=== PATIENT | female | born 1985 | race African-American/Black ===

== ENCOUNTER 2016-07-10 11:49 | Inpatient (IN) | payer MEDICAID, OTHER ==
[~2016-07-10] VITALS: Ht 170.2 cm; Wt 77.8 kg
[2016-07-10] VITALS (8 sets, daily range): BP systolic 121–159; BP diastolic 60–122; PULSE 108–128; RESP 18–32; TEMP 97.8–102; O2SAT 97–100
[~2016-07-10 11:49] MED LIST: HYDR50TA94 PO; MEDR4PAK3 PO
--- NOTE | 2016-07-10 11:53 | PD ---
Physical Exam Time Seen by Provider: 11:52 Narrative 31 y/o femaile presents with shortness of breath, n/v, neck pain, symptoms becagn last night. Vital signs ntoed. Seen at triage desk, awaiting bed placement. Data Data Last Documented VS Vital Signs Date Time Temp Pulse Resp B/P Pulse Ox O2 Delivery O2 Flow Rate FiO2 07/10/16 11:52 102.0 128 24 159/122 100 Room Air [facility] Medical Record Reviewed: Yes Supervised Visit with DOMINGO: Yes Brandon Mast Jul 10, 2016 11:53
--- NOTE | 2016-07-10 12:07 | PD ---
HPI Chief Complaint: Respiratory Distress Time Seen by Provider: 12:06 Travel History International Travel<30 days: No Contact w/Intl Traveler<30days: No Traveled to known affect area: No History of Present Illness HPI 31-year-old female presents to the emergency department for evaluation of fever , shortness of breath, right-sided throat pain that started last night. She also states she has been vomiting and vomited approximately 4 times today. No diarrhea. Patient states she has a mild cough. She has not taken anything at home for her fever. She reports abdominal pain only with coughing and vomiting. She reports no chronic medical problems and taking no prescribed medications. She does report a history of strep throat, but states this is worse. Patient denies . PFSH Past Medical History Diminished Hearing: No : 2 Para: 2 Past Surgical History Section: Yes (X2) Social History Alcohol Use: No Tobacco Use: No Substance Use: No Allergies-Medications (Allergen,Severity, Reaction): Coded Allergies: *MDRO Multi-Drug Resistant Organism (Verified Allergy, Unknown, 07/10/16) MRSA Reported Meds & Prescriptions Reported Meds & Active Scripts Active No Active Prescriptions or Reported Medications Review of Systems Except as stated in HPI: all other systems reviewed are Neg Physical Exam Narrative GENERAL: Well-nourished, well-developed female patient, ambulatory. Fever of 102.0. SKIN: Focused skin assessment warm/dry. HEAD: Normocephalic. Atraumatic. ENT: Mucosa pink and moist. Bilateral tonsils are erythematous, 2+. There is exudates to the right tonsil. No peritonsillar abscess. No uvular edema. No uvular, palatal, or tonsillar deviation. Airway patent. Nasal turbinates appear normal without nasal blood, purulent drainage or septal hematoma. Bilateral tympanic membranes are clear without erythema or perforation. EYES: No scleral icterus. No injection or drainage. NECK: Supple, trachea midline. No JVD or lymphadenopathy. CARDIOVASCULAR: Regular rate and rhythm without murmurs, gallops, or rubs. RESPIRATORY: Breath sounds equal bilaterally. No accessory muscle use. Lungs sounds are clear to auscultation. GASTROINTESTINAL: Abdomen soft, non-tender, nondistended. MUSCULOSKELETAL: No cyanosis, or edema. BACK: Nontender without obvious deformity. No CVA tenderness. Data Data Last Documented VS Vital Signs Date Time Temp Pulse Resp B/P Pulse Ox O2 Delivery O2 Flow Rate FiO2 07/10/16 12:10 100 Room Air 07/10/16 11:52 102.0 128 24 159/122 Orders Complete Blood Count With Diff (07/10/16 12:03) Comprehensive Metabolic Panel (07/10/16 12:03) Group A Rapid Strep Screen (07/10/16 12:03) Influenzae A/B Antigen (07/10/16 12:03) Chest, Single Ap (07/10/16 12:03) Iv Access Insert/Monitor (07/10/16 12:03) Oximetry (07/10/16 12:03) Acetaminophen (Tylenol) (07/10/16 12:15) Sodium Chloride 0.9% Flush (Ns Flush) (07/10/16 12:15) Sodium Chlor 0.9% 1000 Ml Inj (Ns 1000 M (07/10/16 12:15) Ondansetron Inj (Zofran Inj) (07/10/16 12:15) Strep Culture (Group A) (07/10/16 12:20) Blood Culture (07/10/16 12:50) Lactic Acid Sepsis Protocol (07/10/16 12:50) Ct Thorax/ Chest W Iv Contrast (07/10/16 ) Ceftriaxone Inj (Rocephin Inj) (07/10/16 13:00) Azithromycin Inj (Zithromax Inj) (07/10/16 13:00) Sodium Chlor 0.9% 1000 Ml Inj (Ns 1000 M (07/10/16 13:00) Admit Order (Ed Use Only) (07/10/16 13:36) Labs Laboratory Tests Test 07/10/16 07/10/16 12:20 13:10 White Blood Count 17.4 TH/MM3 Red Blood Count 4.55 MIL/MM3 Hemoglobin 9.1 GM/DL Hematocrit 28.8 % Mean Corpuscular Volume 63.3 FL Mean Corpuscular Hemoglobin 20.1 PG Mean Corpuscular Hemoglobin 31.7 % Concent Red Cell Distribution Width 18.3 % Platelet Count 196 TH/MM3 Mean Platelet Volume 9.0 FL Neutrophils (%) (Auto) 86.0 % Lymphocytes (%) (Auto) 5.8 % Monocytes (%) (Auto) 8.0 % Eosinophils (%) (Auto) 0.0 % Basophils (%) (Auto) 0.2 % Neutrophils # (Auto) 14.9 TH/MM3 Lymphocytes # (Auto) 1.0 TH/MM3 Monocytes # (Auto) 1.4 TH/MM3 Eosinophils # (Auto) 0.0 TH/MM3 Basophils # (Auto) 0.0 TH/MM3 CBC Comment AUTO DIFF Differential Total Cells 100 Counted Neutrophils % (Manual) 78 % Band Neutrophils % 5 % Lymphocytes % 9 % Monocytes % 6 % Neutrophils # (Manual) 14.8 TH/MM3 Metamyelocytes 2 % Differential Comment FINAL DIFF MANUAL Platelet Estimate NORMAL Platelet Morphology Comment NORMAL Ovalocytes 1+ Sodium Level 138 MEQ/L Potassium Level 3.6 MEQ/L Chloride Level 106 MEQ/L Carbon Dioxide Level 21.1 MEQ/L Anion Gap 11 MEQ/L Blood Urea Nitrogen 8 MG/DL Creatinine 0.49 MG/DL Estimat Glomerular Filtration 176 ML/MIN Rate Random Glucose 90 MG/DL Calcium Level 8.8 MG/DL Total Bilirubin 2.3 MG/DL Aspartate Amino Transf 19 U/L (AST/SGOT) Alanine Aminotransferase 42 U/L (ALT/SGPT) Alkaline Phosphatase 165 U/L Total Protein 6.7 GM/DL Albumin 3.1 GM/DL Lactic Acid Level 1.1 mmol/L MDM Medical Decision Making Medical Screen Exam Complete: Yes Emergency Medical Condition: Yes Medical Record Reviewed: Yes Interpretation(s) Last Impressions Chest X-Ray 07/10/16 1203 Signed Impressions: Service Date/Time: Sunday, July 10, 2016 12:06 - CONCLUSION: Left basilar airspace disease and abnormal mediastinal contour as above. CT chest with contrast recommended. Chris Covington MD Differential Diagnosis Strep pharyngitis versus influenza versus pneumonia versus viral syndrome Narrative Course 31-year-old female with no past medical history presents to the emergency department for evaluation of right-sided sore throat, fever, shortness of breath , cough that started last night. Patient appears anxious on exam. IV access established. CBC, CMP, strep swab, and influenza swab are ordered and pending. Chest x-ray is ordered and pending. Patient is given Tylenol 650 mg by mouth , normal saline 1 L IV bolus, Zofran 4 mg IV. CBC shows WBC of 17.4, hemoglobin 9.1 hematocrit 28.8, neutrophilia 86.0. CMP shows elevated bilirubin at 2.3, alkaline phosphatase 165. Strep is negative. Influenza is negative. Chest x-ray shows Left basilar airspace disease and abnormal mediastinal contour as above. CT chest with contrast recommended. CT of the chest with IV contrast is ordered and pending. Blood cultures 2, lactic acid are ordered and pending. Patient is given another 1 L normal saline IV bolus. Patient is given azithromycin 500 mg IV and Rocephin 1 g IV. [facility] is paged for admission. Dr. Fernandez accepted admission. Sepsis Criteria SIRS Criteria (2 or more): Temp > 100.9 or < 96.8, Heart rate over 90, WBC > 74791, < 4000 or > 10% bands Sepsis Criteria (SIRS+source): Infect source susp/known Diagnosis Primary Impression: Pneumonia Qualified Code: J18.1 - Pneumonia of left lower lobe due to infectious organism Additional Impression: Sepsis Qualified Code: A41.9 - Sepsis, due to unspecified organism Admitting Information Admitting Physician Requests: Admit Scripts No Active Prescriptions or Reported Meds Renate Jacinto Jul 10, 2016 12:07
[2016-07-10] MEDS ORDERED: ACETAMINOPHEN 325 MG TAB PO ONE (12:15)
[2016-07-10] MEDS ORDERED: ONDANSETRON HCL 4 MG/2 ML VIAL IV PUSH ONE (12:15)
[2016-07-10] MEDS ORDERED: SODIUM CHLORIDE 0.9% FLUSH 10 ML FLUSH IVF PRN (12:15)
[2016-07-10] MEDS ORDERED: SODIUM CHLOR 0.9% 1000 ML INJ 1,000 ML IV ONE ×2 (12:15→13:00)
[2016-07-10 12:37] LABS: AUTOMATED NEUTROPHIL # 14.9 TH/MM3 (1.8-7.7); BASOPHIL % 0.2 % (0.0-2.0); HEMATOCRIT 28.8 % (35.0-46.0); LYMPH % 5.8 % (9.0-44.0); MEAN CELL VOLUME 63.3 FL (80.0-100.0); MEAN CORPUSCULAR HEMOGLOBIN 20.1 PG (27.0-34.0); MEAN CORPUSCULAR HGB CONC 31.7 % (32.0-36.0); PLATELET COUNT 196 TH/MM3 (150-450); RED BLOOD COUNT 4.55 MIL/MM3 (4.00-5.30); RED CELL DISTRIBUTION WIDTH 18.3 % (11.6-17.2); WHITE BLOOD COUNT 17.4 TH/MM3 (4.0-11.0)
[2016-07-10 12:41] LABS: HEMO FLAGS AUTO DIFF
--- NOTE | 2016-07-10 12:44 | RADRPT ---
EXAM DATE/TIME: 07/10/2016 12:06 [facility] COMPARISON: CHEST ONE VIEW EMPLOYMED ONLY, September 26, 2012, 14:10. INDICATIONS : Shortness of breath. MEDICAL HISTORY : None. SURGICAL HISTORY : None. ENCOUNTER: Initial ACUITY: 1 day PAIN SCORE: 0/10 LOCATION: Bilateral chest FINDINGS: The right lung is clear. There is left lower lobe air bronchogram formation and abnormal prominence o f the diastinal shadow at the expected location of the AP window. Mass or pulmonary artery enlargemen t can have this appearance. CONCLUSION: Left basilar airspace disease and abnormal mediastinal contour as above. CT chest with contrast recom mended. Chris Covington MD on July 10, 2016 at 12:41 Board Certified Radiologist. This report was verified electronically.
[2016-07-10 12:57] LABS: ANION GAP 11 MEQ/L (5-15); AST (GOT) 19 U/L (15-37); BICARBONATE 21.1 MEQ/L (21.0-32.0); BLOOD UREA NITROGEN 8 MG/DL (7-18); CHLORIDE 106 MEQ/L (98-107); GLOMERULAR FILTRATION RATE 176 ML/MIN (>89); POTASSIUM 3.6 MEQ/L (3.5-5.1); SODIUM (NA) 138 MEQ/L (136-145)
[2016-07-10 13:00] LABS: ALKALINE PHOSPHATASE 165 U/L (45-117); ALT (GPT) 42 U/L (10-53); TOTAL BILIRUBIN ADULT 2.3 MG/DL (0.2-1.0)
[2016-07-10] MEDS ORDERED: cefTRIAXone INJ 1,000 MG in SODIUM CHLORIDE 0.9% INJ 100 ML IV ONE (13:00)
[2016-07-10] MEDS ORDERED: AZITHROMYCIN INJ 500 MG in SODIUM CHLOR 0.9% 250 ML INJ 250 ML IV ONE (13:00)
[2016-07-10 13:23] LABS: BANDS 5 % (0-6); METAMYELOCYTES 2 % (0-1); NEUTROPHIL # MANUAL DIFF 14.8 TH/MM3 (1.8-7.7); POLYS (SEG NEUTROPHILS) 78 % (16-70); WBC DIFF SAMPLE 100
[2016-07-10 13:24] LABS: OVALOCYTES 1+ (NORMAL)
[2016-07-10 13:25] LABS: PLATELET ESTIMATE SMEAR NORMAL (NORMAL); PLATELET MORPHOLOGY NORMAL (NORMAL); SCAN/DIFF FINAL DIFF MANUAL
[2016-07-10] MEDS ORDERED: IOHEXOL 350 MG/ML 10 ML VIAL (for RAD DIAG) IV ONE (13:47)
[2016-07-10] MEDS ORDERED: ONDANSETRON HCL 4 MG/2 ML VIAL IV PRN (14:00)
[2016-07-10] MEDS ORDERED: RESP: ALBUTEROL 2.5 MG/IPRATROPIUM 0.5 MG NEB (PRN) INH (14:00)
[2016-07-10] MEDS ORDERED: 1/2 NS + KCL 20 MEQ INJ 1,000 ML IV SCH (14:00)
[2016-07-10] MEDS ORDERED: guaiFENesin/DEXTROMETHORPHAN 200 MG/20 MG/10 ML CUP PO PRN (14:00)
[2016-07-10] MEDS ORDERED: SODIUM CHLORIDE 0.9% FLUSH 10 ML FLUSH IV FLUSH PRN (14:00)
--- NOTE | 2016-07-10 14:02 | RADRPT ---
EXAM DATE/TIME: 07/10/2016 13:41 [facility] COMPARISON: No previous studies available for comparison. INDICATIONS : Dyspnea since last night. Right neck pain IV CONTRAST: 93 cc Omnipaque 350 (iohexol) IV RADIATION DOSE: 5.72 CTDIvol (mGy) MEDICAL HISTORY : None SURGICAL HISTORY : None. ENCOUNTER: Initial ACUITY: 1 day PAIN SCALE: 0/10 LOCATION: chest TECHNIQUE: Volumetric scanning of the chest was performed. Using automated exposure control and adjustment of t he mA and/or kV according to patient size, radiation dose was kept as low as reasonably achievable to obtain optimal diagnostic quality images. FINDINGS: There is thyromegaly identified. No pleural or pericardial effusions are seen. There is no consolidat ion identified. The main pulmonary artery is prominent in caliber measuring 4.2 cm in transverse dime nsion on axial image 21, accounting for the density on the recent x-ray. There is soft tissue in the anterior mediastinum possibly representing thymic tissue. A discrete mass is not seen. The lungs are clear. The osseous structures are intact. CONCLUSION: 1. Mild prominent caliber of the main pulmonary artery which accounts for the density on the x-ray. 2. No evidence for pneumonia. 3. Thyroid enlargement. Chris Covington MD on July 10, 2016 at 13:58 Board Certified Radiologist. This report was verified electronically.
--- NOTE | 2016-07-10 14:36 | HHI.HP ---
[facility] Diana Gardner M.D. Admission Diagnosis pneumonia, sepsis Diagnoses: Chief Complaint: Shortness of breath Travel History International Travel<30 Days: No Contact w/Intl Traveler <30 Da: No Traveled to Known Affected Are: No Sepsis Criteria SIRS Criteria (2 or more): Temp > 100.9 or < 96.8, Heart rate over 90, WBC > 09036, < 4000 or > 10% bands Sepsis Criteria (SIRS+source): Infect source susp/known History of Present Illness 31-year-old female with no significant medical history presented to the emergency room with complaint of shortness of breath, sore throat that started yesterday. The patient also had about 4 episodes of vomiting since her symptoms started. She reports an associated cough with yellowish sputum. She denies chest pain. She has been having fevers and chills at home. Workup in the emergency room revealed a fever of 102. She is tachycardic and tachypneic. She has a leukocytosis and her chest x-ray is concerning for pneumonia. Hospitalist contacted for admission. Review of Systems Constitutional: COMPLAINS OF: Fever, Chills Endocrine: DENIES: Polydipsia, Polyuria Ears, nose, mouth, throat: COMPLAINS OF: Throat pain Respiratory: COMPLAINS OF: Cough, Sputum production, Shortness of breath Cardiovascular: DENIES: Chest pain Gastrointestinal: COMPLAINS OF: Nausea, Vomiting Except as stated in HPI: all other systems reviewed are Neg Past Family Social History Past Medical History None Past Surgical History C-sections 3 Reported Medications Reported Meds & Active Scripts Active No Active Prescriptions or Reported Medications Allergies: Coded Allergies: *MDRO Multi-Drug Resistant Organism (Verified Allergy, Unknown, 07/10/16) MRSA Family History Patient does not know Social History She denies tobacco, alcohol, or illicit drug use Physical Exam Vital Signs Vital Signs Date Time Temp Pulse Resp B/P Pulse Ox O2 Delivery O2 Flow Rate FiO2 07/10/16 12:10 100 Room Air 07/10/16 12:10 100 Room Air 07/10/16 11:52 102.0 128 24 159/122 100 Room Air Physical Exam GENERAL: Obese female in mild respiratory distress. She is tachypneic SKIN: No rashes, ecchymoses or lesions. Cool and dry. HEAD: Atraumatic. Normocephalic. No temporal or scalp tenderness. EYES: Pupils equal round and reactive. Extraocular motions intact. No scleral icterus. No injection or drainage. ENT: Nose without drainage. Marked tonsillar hypertrophy but no exudates NECK: Trachea midline. No JVD or lymphadenopathy. Supple, nontender, no meningeal signs. CARDIOVASCULAR: Regular rate and rhythm without murmurs, gallops, or rubs. RESPIRATORY: There are some faint diffuse rhonchi. No wheezing GASTROINTESTINAL: Abdomen soft, non-tender, nondistended. No hepato-splenomegaly , or palpable masses. No guarding. MUSCULOSKELETAL: Extremities without clubbing, cyanosis, or edema. No joint tenderness, effusion, or edema noted. No calf tenderness. Negative Homans sign bilaterally. NEUROLOGICAL: Awake and alert. Cranial nerves II through XII intact. Motor and sensory grossly within normal limits. Five out of 5 muscle strength in all muscle groups. Normal speech. Laboratory Laboratory Tests Test 07/10/16 07/10/16 12:20 13:10 White Blood Count 17.4 Red Blood Count 4.55 Hemoglobin 9.1 Hematocrit 28.8 Mean Corpuscular Volume 63.3 Mean Corpuscular Hemoglobin 20.1 Mean Corpuscular Hemoglobin 31.7 Concent Red Cell Distribution Width 18.3 Platelet Count 196 Mean Platelet Volume 9.0 Neutrophils (%) (Auto) 86.0 Lymphocytes (%) (Auto) 5.8 Monocytes (%) (Auto) 8.0 Eosinophils (%) (Auto) 0.0 Basophils (%) (Auto) 0.2 Neutrophils # (Auto) 14.9 Lymphocytes # (Auto) 1.0 Monocytes # (Auto) 1.4 Eosinophils # (Auto) 0.0 Basophils # (Auto) 0.0 CBC Comment AUTO DIFF Differential Total Cells 100 Counted Neutrophils % (Manual) 78 Band Neutrophils % 5 Lymphocytes % 9 Monocytes % 6 Neutrophils # (Manual) 14.8 Metamyelocytes 2 Differential Comment FINAL DIFF MANUAL Platelet Estimate NORMAL Platelet Morphology Comment NORMAL Ovalocytes 1+ Sodium Level 138 Potassium Level 3.6 Chloride Level 106 Carbon Dioxide Level 21.1 Anion Gap 11 Blood Urea Nitrogen 8 Creatinine 0.49 Estimat Glomerular Filtration 176 Rate Random Glucose 90 Calcium Level 8.8 Total Bilirubin 2.3 Aspartate Amino Transf 19 (AST/SGOT) Alanine Aminotransferase 42 (ALT/SGPT) Alkaline Phosphatase 165 Total Protein 6.7 Albumin 3.1 Lactic Acid Level 1.1 Date/Time Procedure Status Source Growth 07/10/16 13:10 Aerobic Blood Culture Received Blood Peripheral Pending 07/10/16 13:10 Anaerobic Blood Culture Received Blood Peripheral Pending 07/10/16 12:20 Influenza Types A,B Antigen (SCOTTY) - Final Complete Nasal Aspirate NEGATIVE FOR FLU A AND B ANTIGEN.... 07/10/16 12:20 Group A Streptococcus Screen (SCOTTY) - Final Complete Throat 07/10/16 12:20 Group A Streptococcus Screen Received Throat Pending Result Diagram: 07/10/16 1220 07/10/16 1220 Imaging Last Impressions Chest X-Ray 07/10/16 1203 Signed Impressions: Service Date/Time: Sunday, July 10, 2016 12:06 - CONCLUSION: Left basilar airspace disease and abnormal mediastinal contour as above. CT chest with contrast recommended. Chris Covington MD Chest CT 07/10/16 0000 Signed Impressions: Service Date/Time: Sunday, July 10, 2016 13:41 - CONCLUSION: 1. Mild prominent caliber of the main pulmonary artery which accounts for the density on the x-ray. 2. No evidence for pneumonia. 3. Thyroid enlargement. Chris Covington MD Assessment and Plan Problem List: (1) Sepsis ICD Code: A41.9 Status: Acute (2) Pneumonia ICD Code: J18.9 Status: Acute Assessment and Plan 31-year-old female who presented with sepsis. Initial concern for pneumonia. CT scan does not reveal pneumonia. However clinically the patient is having difficulty with breathing, coughing, with fever and leukocytosis. It is possible that pneumonia is early. A viral syndrome may be causing her sepsis as well. Sepsis/pneumonia: - Treat empirically with Rocephin and azithromycin. - Follow blood cultures - Breathing treatments as needed - She does have tonsillar hypertrophy. Will give a dose of Solu-Medrol to help with inflammation. - Ibuprofen as needed for throat pain Chronic anemia: Based on review of records. She is always had some level of anemia. Unclear what type. - Will obtain iron studies GI prophylaxis: Stool softener PRN constipation. DVT PPx: SCDs Discussed Condition With ER PA Physician Certification 2 Midnight Certification Type: Admission for Inpatient Services Order for Inpatient Services The services are ordered in accordance with Medicare regulations or non- Medicare payer requirements, as applicable. In the case of services not specified as inpatient-only, they are appropriately provided as inpatient services in accordance with the 2-midnight benchmark. Estimated LOS (days): 3 days is the estimated time the patient will need to remain in the hospital, assuming treatment plan goals are met and no additional complications. Post-Hospital Plan: Home Problem Qualifiers (1) Sepsis: Qualified Code: A41.9 - Sepsis, due to unspecified organism (2) Pneumonia: Qualified Code: J18.1 - Pneumonia of left lower lobe due to infectious organism Abelardo Fernandez MD Jul 10, 2016 14:35
[2016-07-10] MEDS ORDERED: methylPREDNISolone SOD SUCC 40 MG/1 ML VIAL IV PUSH ONE (16:45)
[2016-07-10] MEDS: IBUPROFEN 800 MG TAB PO PRN ×2 (16:52→23:46)
[2016-07-10] MEDS: RESP: ALBUTEROL 2.5 MG/IPRATROPIUM 0.5 MG NEB (SCH) INH ×2 (16:58→21:51)
[2016-07-10] MEDS ORDERED: METOPROLOL TARTRATE 5 MG/5 ML VIAL IV PUSH PRN (17:45)
[2016-07-10] MEDS ORDERED: ACETAMINOPHEN 325 MG TAB PO PRN (19:30)
[2016-07-10 20:11] LABS: FERRITIN 54 NG/ML (8-252)
[2016-07-10] MEDS: SODIUM CHLORIDE 0.9% FLUSH 10 ML FLUSH IV FLUSH SCH (20:43)
[2016-07-10] MEDS ORDERED: SODIUM CHLORID 0.9% 500 ML INJ 500 ML IV ONE (22:15)
[2016-07-11] VITALS (11 sets, daily range): BP systolic 118–153; BP diastolic 55–72; PULSE 79–133; RESP 18–20; TEMP 97.1–99.3; O2SAT 97–100
[2016-07-11] MEDS: RESP: ALBUTEROL 2.5 MG/IPRATROPIUM 0.5 MG NEB (SCH) INH ×4 (03:28→21:21)
[2016-07-11] MEDS ORDERED: SODIUM CHLORID 0.9% 500 ML INJ 500 ML IV ONE (06:15)
[2016-07-11 08:26] LABS: AUTOMATED NEUTROPHIL # 11.8 TH/MM3 (1.8-7.7); BASOPHIL # 0.1 TH/MM3 (0-0.2); BASOPHIL % 0.6 % (0.0-2.0); HEMATOCRIT 27.4 % (35.0-46.0); LYMPH % 8.8 % (9.0-44.0); LYMPHOCYTE # 1.3 TH/MM3 (1.0-4.8); MEAN CELL VOLUME 63.6 FL (80.0-100.0); MEAN CORPUSCULAR HEMOGLOBIN 20.1 PG (27.0-34.0); MEAN CORPUSCULAR HGB CONC 31.6 % (32.0-36.0); MONO % 7.6 % (0.0-8.0); PLATELET COUNT 175 TH/MM3 (150-450); RED BLOOD COUNT 4.31 MIL/MM3 (4.00-5.30); RED CELL DISTRIBUTION WIDTH 18.4 % (11.6-17.2); WHITE BLOOD COUNT 14.2 TH/MM3 (4.0-11.0)
[2016-07-11 08:30] LABS: HEMO FLAGS AUTO DIFF
[2016-07-11] MEDS: SODIUM CHLORIDE 0.9% FLUSH 10 ML FLUSH IV FLUSH SCH ×2 (08:33→23:00)
[2016-07-11] MEDS: cefTRIAXone INJ 1,000 MG in SODIUM CHLORIDE 0.9% INJ 100 ML IV SCH (08:33)
[2016-07-11] MEDS: AZITHROMYCIN 250 MG TAB PO SCH (08:33)
[2016-07-11 08:41] LABS: ANION GAP 9 MEQ/L (5-15); BICARBONATE 21.2 MEQ/L (21.0-32.0); BLOOD UREA NITROGEN 7 MG/DL (7-18); CHLORIDE 113 MEQ/L (98-107); GLOMERULAR FILTRATION RATE 185 ML/MIN (>89); POTASSIUM 3.5 MEQ/L (3.5-5.1); SODIUM (NA) 143 MEQ/L (136-145); TRANSFERRIN IRON PROFILE 233 MG/DL (200-360)
[2016-07-11 09:25] LABS: BANDS 10 % (0-6); NEUTROPHIL # MANUAL DIFF 11.9 TH/MM3 (1.8-7.7); OVALOCYTES 1+ (NORMAL); PLATELET ESTIMATE SMEAR NORMAL (NORMAL); PLATELET MORPHOLOGY NORMAL (NORMAL); POLYS (SEG NEUTROPHILS) 74 % (16-70); SCAN/DIFF FINAL DIFF MANUAL; WBC DIFF SAMPLE 100
[2016-07-11] MEDS: IBUPROFEN 800 MG TAB PO PRN ×2 (11:21→19:04)
[2016-07-11] MEDS ORDERED: ATENOLOL 25 MG TAB PO SCH (12:18)
--- NOTE | 2016-07-11 14:13 | HHI.PR ---
Subjective Remarks Patient reports feeling better today. Breathing more comfortably. Throat pain significantly improved. Still tachycardic. We discussed her lab results that are consistent with Hyperthyroidism and most likely Graves disease. She denies visual difficulties. Objective Vitals Vital Signs Date Time Temp Pulse Resp B/P Pulse Ox O2 Delivery O2 Flow Rate FiO2 07/11/16 09:20 97 21 07/11/16 08:42 133 07/11/16 08:04 98.3 108 20 137/72 99 07/11/16 04:00 97.1 109 18 136/62 100 07/11/16 03:30 98 Nasal Cannula 21 07/11/16 00:00 98.0 110 18 153/72 97 07/10/16 21:53 98 21 07/10/16 20:00 110 07/10/16 20:00 97.8 108 18 129/75 98 07/10/16 18:20 101.0 114 152/64 97 07/10/16 18:15 99.8 125 135/60 97 07/10/16 17:02 98 21 07/10/16 16:00 99.5 121 32 121/78 98 I/O 07/10/16 07/10/16 07/10/16 07/11/16 07/11/16 07/11/16 07:00 15:00 23:00 07:00 15:00 23:00 Intake Total 985 ml 480 ml Balance 985 ml 480 ml Intake Oral 480 ml 480 ml IV Total 505 ml # Voids 1 1 # Bowel Movements 0 0 Result Diagram: 07/11/16 0811 07/11/16 0811 Imaging Last Impressions Thyroid Ultrasound 07/11/16 0000 Signed Impressions: Service Date/Time: Monday, July 11, 2016 15:10 - CONCLUSION: Enlarged thyroid gland is noted with marked increased vascularity. Chris Covington MD Chest X-Ray 07/10/16 1203 Signed Impressions: Service Date/Time: Sunday, July 10, 2016 12:06 - CONCLUSION: Left basilar airspace disease and abnormal mediastinal contour as above. CT chest with contrast recommended. Chris Covington MD Chest CT 07/10/16 0000 Signed Impressions: Service Date/Time: Sunday, July 10, 2016 13:41 - CONCLUSION: 1. Mild prominent caliber of the main pulmonary artery which accounts for the density on the x-ray. 2. No evidence for pneumonia. 3. Thyroid enlargement. Chris Covington MD Objective Remarks GENERAL: Obese female in no acute distress. EYES: Exophthalmos evident. Pupils equal round and reactive. Extraocular motions intact. ENT: Nose without drainage. Marked tonsillar hypertrophy but no exudates NECK: Trachea midline. Thyroid enlarged. CARDIOVASCULAR: Tachycardic. No murmurs. RESPIRATORY: Clear to auscultation bilaterally. GASTROINTESTINAL: Abdomen soft, non-tender, nondistended. MUSCULOSKELETAL: Extremities without clubbing, cyanosis, or edema. A/P Problem List: (1) Sepsis ICD Code: A41.9 Status: Acute (2) Pneumonia ICD Code: J18.9 Status: Acute (3) Hyperthyroidism ICD Code: E05.90 Status: Acute (4) Graves disease ICD Code: E05.00 Status: Acute Assessment and Plan 31-year-old female who presented with sepsis. Initial concern for pneumonia. CT scan does not reveal pneumonia. However clinically the patient is having difficulty with breathing, coughing, with fever and leukocytosis. It is possible that pneumonia is early. A viral syndrome may be causing her sepsis as well. Further workup consistent with Graves disease. Sepsis/pneumonia: - Treat empirically with Rocephin and azithromycin. - Follow blood cultures - Breathing treatments as needed - She does have tonsillar hypertrophy. - Ibuprofen as needed for throat pain Graves disease: New diagnosis for the patient. Tachycardic. Low TSH, High T3 and T4, High T3/T4 ratio. Non nodular, enlarged thyroid with marked vascularity. - Patient reports she recently saw her PCP who obtained initial thyroid blood work but have not followed up yet - Will start Atenolol 25 mg daily to control tachycardia - Will discuss Methimazole with the patient in AM vs defer to PCP for further treatment Microcytic anemia: Likely secondary to above - Advise outpatient follow up. GI prophylaxis: Stool softener PRN constipation. DVT PPx: SCDs Discharge Planning Probable discharge tomorrow. Problem Qualifiers (1) Sepsis: Qualified Code: A41.9 - Sepsis, due to unspecified organism (2) Pneumonia: Qualified Code: J18.1 - Pneumonia of left lower lobe due to infectious organism Abelardo Fernandez MD Jul 11, 2016 14:12
--- NOTE | 2016-07-11 16:16 | RADRPT ---
EXAM DATE/TIME: 07/11/2016 15:10 [facility] COMPARISON: CT THORAX W CONTRAST, July 10, 2016, 13:41. INDICATIONS : Thyroid nodule. MEDICAL HISTORY : Hypertension. Sputum production. Dyspnea. Nausea/vomiting. MRSA. SURGICAL HISTORY : section. ENCOUNTER: Initial ACUITY: 1 month PAIN SCORE: 0/10 LOCATION: Bilateral neck MEASUREMENTS: RIGHT LOBE: 6.7 x 3.3 x 2.3 cm LEFT LOBE: 7.4 x 3.3 x 3.0 cm FINDINGS: There is diffuse increased vascularity of the thyroid gland which is enlarged and mildly inhomogeneou s. There are no discrete nodules. CONCLUSION: Enlarged thyroid gland is noted with marked increased vascularity. Chris Covington MD on July 11, 2016 at 16:13 Board Certified Radiologist. This report was verified electronically.
[2016-07-12] VITALS: BP 157/72; PULSE 114; RESP 20; TEMP 99; O2SAT 100
[2016-07-12] MEDS: IBUPROFEN 800 MG TAB PO PRN ×2 (01:00→09:34)
[2016-07-12 04:00] VITALS: BP 152/79; PULSE 101; RESP 20; TEMP 98.4; O2SAT 99
[2016-07-12 04:37] VITALS: PULSE 100
[2016-07-12] MEDS ORDERED: RESP: IPRATROPIUM 0.5 MG/2.5 ML NEB NEB PRN (05:15)
[2016-07-12 06:32] LABS: BICARBONATE 20.1 MEQ/L (21.0-32.0); MAGNESIUM 1.7 MG/DL (1.5-2.5); POTASSIUM 3.4 MEQ/L (3.5-5.1)
[2016-07-12 08:00] VITALS: BP 141/69; PULSE 108; RESP 20; TEMP 98.4; O2SAT 98
[2016-07-12] MEDS ORDERED: ATENOLOL 25 MG TAB PO SCH (08:15)
[2016-07-12] MEDS ORDERED: ATENOLOL 50 MG TAB PO SCH (09:00)
[2016-07-12] MEDS: SODIUM CHLORIDE 0.9% FLUSH 10 ML FLUSH IV FLUSH SCH (09:00)
[2016-07-12] MEDS ORDERED: IBUP800T23 PO (09:09)
[2016-07-12] MEDS ORDERED: ATEN25TA PO (09:09)
[2016-07-12] MEDS ORDERED: AZIT250T3 PO (09:09)
--- NOTE | 2016-07-12 09:10 | HHI.DCPOC ---
Discharge Care Plan Diagnosis: (1) Hyperthyroidism (2) Graves disease (3) Sepsis Goals to Promote Your Health * To prevent worsening of your condition and complications * To maintain your health at the optimal level Directions to Meet Your Goals Take your medications as prescribed Follow your dietary instruction Follow activity as directed Keep your appointments as scheduled Take your immunizations and boosters as scheduled If your symptoms worsen call your PCP, if no PCP go to Urgent Care Center or Emergency Room Smoking is Dangerous to Your Health. Avoid second hand smoke Call the 24-hour hour crisis hotline for domestic abuse at Abelardo Fernandez MD Jul 12, 2016 09:10
--- NOTE | 2016-07-12 09:14 | HHI.DS ---
Discharge Summary Admission Date Jul 10, 2016 at 13:38 Discharge Date: Jul 12, 2016 Admitting Diagnosis pneumonia, sepsis (1) Sepsis ICD Code: A41.9 (2) Pneumonia ICD Code: J18.9 (3) Hyperthyroidism ICD Code: E05.90 (4) Graves disease ICD Code: E05.00 Procedures None Brief History - From Admission 31-year-old female with no significant medical history presented to the emergency room with complaint of shortness of breath, sore throat that started yesterday. The patient also had about 4 episodes of vomiting since her symptoms started. She reports an associated cough with yellowish sputum. She denies chest pain. She has been having fevers and chills at home. Workup in the emergency room revealed a fever of 102. She is tachycardic and tachypneic. She has a leukocytosis and her chest x-ray is concerning for pneumonia. Hospitalist contacted for admission. CBC/BMP: 07/11/16 0811 07/12/16 0538 Significant Findings Laboratory Tests Test 07/10/16 07/11/16 07/12/16 12:20 08:11 05:38 White Blood Count 17.4 TH/MM3 14.2 TH/MM3 (4.0-11.0) (4.0-11.0) Hemoglobin 9.1 GM/DL 8.7 GM/DL (11.6-15.3) (11.6-15.3) Hematocrit 28.8 % 27.4 % (35.0-46.0) (35.0-46.0) Mean Corpuscular Volume 63.3 FL 63.6 FL (80.0-100.0) (80.0-100.0) Mean Corpuscular Hemoglobin 20.1 PG 20.1 PG (27.0-34.0) (27.0-34.0) Mean Corpuscular Hemoglobin 31.7 % 31.6 % Concent (32.0-36.0) (32.0-36.0) Red Cell Distribution Width 18.3 % 18.4 % (11.6-17.2) (11.6-17.2) Neutrophils (%) (Auto) 86.0 % 83.0 % (16.0-70.0) (16.0-70.0) Lymphocytes (%) (Auto) 5.8 % 8.8 % (9.0-44.0) (9.0-44.0) Neutrophils # (Auto) 14.9 TH/MM3 11.8 TH/MM3 (1.8-7.7) (1.8-7.7) Monocytes # (Auto) 1.4 TH/MM3 1.1 TH/MM3 (0-0.9) (0-0.9) Neutrophils % (Manual) 78 % (16-70) 74 % (16-70) Neutrophils # (Manual) 14.8 TH/MM3 11.9 TH/MM3 (1.8-7.7) (1.8-7.7) Metamyelocytes 2 % (0-1) Ovalocytes 1+ (NORMAL) 1+ (NORMAL) Creatinine 0.49 MG/DL 0.47 MG/DL 0.37 MG/DL (0.50-1.00) (0.50-1.00) (0.50-1.00) Total Bilirubin 2.3 MG/DL (0.2-1.0) Alkaline Phosphatase 165 U/L (45-117) Albumin 3.1 GM/DL (3.4-5.0) Folate GREATER THAN 20.0 NG/ML (3.1-17.5) Thyroid Stimulating Hormone LESS THAN 3rd Gen 0.005 uIU/ML (0.358-3.740) Band Neutrophils % 10 % (0-6) Chloride Level 113 MEQ/L 110 MEQ/L (98-107) (98-107) Random Glucose 132 MG/DL 109 MG/DL (74-106) (74-106) Iron Level 13 MCG/DL (50-170) Percent Iron Saturation 4.0 % (20-50) Free Thyroxine 5.17 NG/DL (0.76-1.46) Total Triiodothyronine 291 NG/DL (60-181) Potassium Level 3.4 MEQ/L (3.5-5.1) Carbon Dioxide Level 20.1 MEQ/L (21.0-32.0) Imaging Last Impressions Thyroid Ultrasound 07/11/16 0000 Signed Impressions: Service Date/Time: Monday, July 11, 2016 15:10 - CONCLUSION: Enlarged thyroid gland is noted with marked increased vascularity. Chris Covington MD Chest X-Ray 07/10/16 1203 Signed Impressions: Service Date/Time: Sunday, July 10, 2016 12:06 - CONCLUSION: Left basilar airspace disease and abnormal mediastinal contour as above. CT chest with contrast recommended. Chris Covington MD Chest CT 07/10/16 0000 Signed Impressions: Service Date/Time: Sunday, July 10, 2016 13:41 - CONCLUSION: 1. Mild prominent caliber of the main pulmonary artery which accounts for the density on the x-ray. 2. No evidence for pneumonia. 3. Thyroid enlargement. Chris Covington MD PE at Discharge GENERAL: Obese female in no acute distress. EYES: Exophthalmos evident. Pupils equal round and reactive. Extraocular motions intact. ENT: Nose without drainage. Marked tonsillar hypertrophy but no exudates NECK: Trachea midline. Thyroid enlarged. CARDIOVASCULAR: Tachycardic. No murmurs. RESPIRATORY: Clear to auscultation bilaterally. GASTROINTESTINAL: Abdomen soft, non-tender, nondistended. MUSCULOSKELETAL: Extremities without clubbing, cyanosis, or edema. Pt update on day of discharge Patient reports she is feeling better. She is anxious to go home. She understand the need to follow up outpatient. She does have a PCP. We discussed her discharge planning at length and a new diagnosis of hyperthyroidism and Graves' disease. All of her questions were answered. She understands further workup and other medications may be added to her treatment plan outpatient. Hospital Course 31-year-old female who presented with sepsis. Initial concern for pneumonia. CT scan does not reveal pneumonia. However clinically the patient is having difficulty with breathing, coughing, with fever and leukocytosis. It is possible that pneumonia is early. A viral syndrome could have caused her sepsis as well. Further workup consistent with Graves disease. Evaluation and treatment course detailed below: Sepsis/pneumonia: -Patient treated empirically with Rocephin and azithromycin. Her respiratory symptoms markedly improved. She is discharged on azithromycin to complete the course. Blood cultures were negative at 48 hours. Graves disease: New diagnosis for the patient. Tachycardic. Low TSH, High T3 and T4, High T3/T4 ratio. Non nodular, enlarged thyroid with marked vascularity. - Patient reports she recently saw her PCP who obtained initial thyroid blood work but have not followed up yet -She was started on atenolol which helped tachycardia. She is advised to follow up outpatient with her primary care physician who may titrate up her atenolol and may probably start methimazole for treatment of her Graves' disease. Patient understand the need to follow-up for further treatment of this newly diagnosed condition. Microcytic anemia: Likely secondary to above - Advise outpatient follow up. Pt Condition on Discharge: Stable Discharge Disposition: Discharge Home Discharge Time: > 30 minutes Discharge Instructions DIET: Follow Instructions for: As Tolerated, No Restrictions Activities you can perform: Regular-No Restrictions Follow up Referrals: PCP Follow-up - 3-5 Days New Medications: Azithromycin (Azithromycin) 250 Mg Tab 250 MG PO DAILY Infection #4 Ref 0 TAB Atenolol (Atenolol) 25 Mg Tab 50 MG PO DAILY #30 TAB Ibuprofen (Ibuprofen) 800 Mg Tab 800 MG PO Q6HR PRN PAIN SCALE 1 TO 10 #15 TAB Abelardo Fernandez MD Jul 12, 2016 09:14
[2016-07-12] MEDS: AZITHROMYCIN 250 MG TAB PO SCH (09:34)
[2016-07-12] MEDS: cefTRIAXone INJ 1,000 MG in SODIUM CHLORIDE 0.9% INJ 100 ML IV SCH (09:35)
[2016-07-12] MEDS ORDERED: RESP: IPRATROPIUM 0.5 MG/2.5 ML NEB NEB SCH (10:00)
== END 2016-07-12 12:45 | disposition home or self-care (01) | DRG 871 ==
LOC: NEPD 11:49 → NEDA 13:38 → N04A 15:09
PROVIDERS: ADMIT Family Medicine; ATTEND Family Medicine
DX: A41.9 Sepsis, unspecified organism (principal); J18.9 Pneumonia, unspecified organism; D50.9 Iron deficiency anemia, unspecified; E05.00 Thyrotoxicosis with diffuse goiter without thyrotoxic crisis or storm; B34.9 Viral infection, unspecified; J35.1 Hypertrophy of tonsils
CPT/HCPCS: 71010; 71260; 76536; 80048; 80053; 82607; 82728; 82746; 83540; 83550; 83605; 83735; 84439; 84443; 84480; 85007; 85027; 87040; 87081; 87449; 87641; 87804; 87880; 94640; 94664; 96361; 96365; 96375; J0456; J0696; J2405; J2920; J7030; J7040; J7050; J7644; Q9967

== ENCOUNTER 2016-07-24 01:56 | Emergency (ER) | payer OTHER ==
[~2016-07-24] VITALS: Ht 170.2 cm; Wt 104.0 kg
[~2016-07-24 01:56] MED LIST changes: +ATEN25TA PO; +AZIT250T3 PO; -HYDR50TA94 PO; +IBUP800T23 PO; -MEDR4PAK3 PO
[2016-07-24 02:00] VITALS: BP 130/78; PULSE 104; RESP 16; TEMP 98.6; O2SAT 99
[2016-07-24 02:57] LABS: AUTOMATED NEUTROPHIL # 2.9 TH/MM3 (1.8-7.7); BASOPHIL % 0.5 % (0.0-2.0); EOSINOPHIL # 0.1 TH/MM3 (0-0.4); EOSINOPHIL % 1.2 % (0.0-4.0); HEMATOCRIT 32.3 % (35.0-46.0); LYMPH % 43.8 % (9.0-44.0); LYMPHOCYTE # 2.7 TH/MM3 (1.0-4.8); MEAN CELL VOLUME 64.1 FL (80.0-100.0); MEAN CORPUSCULAR HEMOGLOBIN 19.7 PG (27.0-34.0); MEAN CORPUSCULAR HGB CONC 30.8 % (32.0-36.0); MONO % 8.3 % (0.0-8.0); NEUT % 46.2 % (16.0-70.0); PLATELET COUNT 270 TH/MM3 (150-450); RED BLOOD COUNT 5.04 MIL/MM3 (4.00-5.30); RED CELL DISTRIBUTION WIDTH 18.7 % (11.6-17.2); WHITE BLOOD COUNT 6.2 TH/MM3 (4.0-11.0)
[2016-07-24 03:06] LABS: HEMO FLAGS AUTO DIFF
[2016-07-24] MEDS ORDERED: MORPHINE SULFATE 4 MG/ML INJ IV PUSH ONE (03:45)
[2016-07-24] MEDS ORDERED: ONDANSETRON HCL 4 MG/2 ML VIAL IV PUSH ONE (03:45)
[2016-07-24] MEDS ORDERED: SODIUM CHLOR 0.9% 1000 ML INJ 1,000 ML IV ONE (03:45)
[2016-07-24 03:46] LABS: ALT (GPT) 39 U/L (10-53); ANION GAP 9 MEQ/L (5-15); AST (GOT) 32 U/L (15-37); BICARBONATE 23.5 MEQ/L (21.0-32.0); BLOOD UREA NITROGEN 6 MG/DL (7-18); CHLORIDE 108 MEQ/L (98-107); GLOMERULAR FILTRATION RATE 229 ML/MIN (>89); MAGNESIUM 1.9 MG/DL (1.5-2.5); POTASSIUM 3.9 MEQ/L (3.5-5.1); SODIUM (NA) 140 MEQ/L (136-145)
[2016-07-24 03:55] LABS: ALKALINE PHOSPHATASE 176 U/L (45-117); TOTAL BILIRUBIN ADULT 0.7 MG/DL (0.2-1.0)
--- NOTE | 2016-07-24 03:56 | PD ---
HPI Chief Complaint: Chest Pain Time Seen by Provider: 02:11 Travel History International Travel<30 days: No Contact w/Intl Traveler<30days: No Traveled to known affect area: No History of Present Illness HPI The patient is a 31 year old female who presents to the [facility] emergency department with a history of chest pain that she reports began suddenly at approximately midnight. She reports that she was awake and sitting when it began. She reports that the pain is in the center of her chest and a squeezing/sharp sensation. She reports that it is severe. She reports that the pain is worse with taking a deep breath. She reports that she's had an associated cough. She reports that she's had a cough since she was admitted to the hospital with a diagnosis of pneumonia on July 10, 2016. From reviewing the record, the patient did not actually have pneumonia. The patient ended up undergoing a chest CT to evaluate abnormal mediastinal contour and was diagnosed as having mild prominent caliber of her main pulmonary artery which accounted for the density that was noted on x-ray, no evidence of pneumonia was noted, thyroid enlargement was noted. The patient had an ultrasound of the thyroid that showed increased vascularity and thyroid nodules. The patient was noted to have a TSH that was undetectable. The patient was diagnosed with Graves' disease and hyperthyroid disorder. She was instructed to follow-up with her primary care physician regarding this. She reports that she has been seen by her primary care physician, Dr. Gardner. The patient reports that prior to discharge from the hospital she was started on atenolol. The patient reports that over the last 4 months she's had a 44 pound weight loss without trying. She reports that she's had intermittent loose stools. She reports that with the chest pain she's had 2 episodes of vomiting this evening. The patient denies any recent fevers, abdominal pain, urinary symptoms, or neurologic symptoms. [facility] Past Medical History Narrative Medical The patient's past medical history is significant for a recent diagnosis of Graves' disease, history of hypertension. Cardiovascular Problems: Yes Diminished Hearing: No Endocrine: No Hypertension: Yes Immune Disorder: No Immunizations Current: Yes Thyroid Disease: Yes (enlarged) ?: Not LMP: 06/28/16 : 2 Para: 2 Past Surgical History Narrative Surgical The patient's past surgical history is significant for 3 prior C-sections. Surgical History: No Previous Surgery Section: Yes (X2) Social History Alcohol Use: No Tobacco Use: No Substance Use: No Allergies-Medications (Allergen,Severity, Reaction): Coded Allergies: *MDRO Multi-Drug Resistant Organism (Verified Allergy, Unknown, 07/24/16) MRSA (arm)-03/23/13 MRSA PCR Screen #1 NEGATIVE - 07/11/2016 Reported Meds & Prescriptions Reported Meds & Active Scripts Active Atenolol 50 Mg Tab 50 Mg PO BID Methimazole 10 Mg Tab 10 Mg PO DAILY Review of Systems Except as stated in HPI: all other systems reviewed are Neg General / Constitutional: No: Fever Eyes: No: Visual changes HENT: No: Headaches Cardiovascular: Positive: Chest Pain or Discomfort, Palpitations, Tachycardia, Dyspnea on exertion Respiratory: Positive: Cough, Shortness of Breath Gastrointestinal: No: Abdominal Pain Genitourinary: No: Dysuria Musculoskeletal: No: Pain Skin: No Rash Neurologic: No: Weakness Psychiatric: No: Depression Endocrine: No: Polydipsia Hematologic/Lymphatic: No: Easy Bruising Physical Exam Narrative General: The patient is a well-developed well-nourished female who is uncomfortable appearing on arrival. Head and Neck exam: Head is normocephalic atraumatic. Eyes: EOMI, pupils are equal round and reactive to light. Nose: Midline septum with pink mucous membranes Mouth: Dentition unremarkable. Moist mucus membranes. Posterior oropharynx is not erythematous. No tonsillar hypertrophy. Uvula midline. Airway patent. Neck: No palpable lymphadenopathy. No nuchal rigidity. The patient has palpable thyromegaly with reported discomfort on palpation. Cardiovascular: Sinus tachycardia in the low 100s without murmurs, gallops, or rubs. No pulse deficit to the extremities and simultaneous auscultation and palpation of her radial artery. Lungs: Clear to auscultation bilaterally. No wheezes, rhonchi, or rales. Abdomen: Soft, without tenderness to palpation in all 4 quadrants of the abdomen. No guarding, rebound, or rigidity. Normal bowel sounds are audible. Extremities: No clubbing, cyanosis, or edema. 2+ pulses in all 4 extremities. No calf tenderness on palpation. Back: No spinous process tenderness to palpation. No costovertebral angle tenderness to palpation. Neurologic Exam: Grossly nonfocal. Skin Exam: No rash noted. Intact skin that is warm and dry. Data Data Last Documented VS Vital Signs Date Time Temp Pulse Resp B/P Pulse Ox O2 Delivery O2 Flow Rate FiO2 07/24/16 02:00 98.6 104 16 130/78 99 Room Air Orders Electrocardiogram (07/24/16 ) Electrocardiogram (07/24/16 02:40) Complete Blood Count With Diff (07/24/16 02:40) Comprehensive Metabolic Panel (07/24/16 02:40) Creatine Kinase (Cpk) (07/24/16 02:40) Ckmb (Isoenzyme) Profile (07/24/16 02:40) Troponin I (07/24/16 02:40) Lipase (07/24/16 02:40) Magnesium (Mg) (07/24/16 02:40) Thyroid Stimulating Hormone (07/24/16 02:40) Iv Access Insert/Monitor (07/24/16 02:40) Ecg Monitoring (07/24/16 02:40) Oximetry (07/24/16 02:40) Ed Urine Pregnancytest Poc (07/24/16 02:40) Ct Pulmonary Angiogram (07/24/16 02:40) Morphine Inj (Morphine Inj) (07/24/16 03:45) Ondansetron Inj (Zofran Inj) (07/24/16 03:45) Sodium Chlor 0.9% 1000 Ml Inj (Ns 1000 M (07/24/16 03:45) Iohexol 350 Inj (Omnipaque 350 Inj) (07/24/16 04:12) Atenolol (Tenormin) (07/24/16 04:45) Labs Laboratory Tests Test 07/24/16 02:34 White Blood Count 6.2 TH/MM3 Red Blood Count 5.04 MIL/MM3 Hemoglobin 9.9 GM/DL Hematocrit 32.3 % Mean Corpuscular Volume 64.1 FL Mean Corpuscular Hemoglobin 19.7 PG Mean Corpuscular Hemoglobin 30.8 % Concent Red Cell Distribution Width 18.7 % Platelet Count 270 TH/MM3 Mean Platelet Volume 8.9 FL Neutrophils (%) (Auto) 46.2 % Lymphocytes (%) (Auto) 43.8 % Monocytes (%) (Auto) 8.3 % Eosinophils (%) (Auto) 1.2 % Basophils (%) (Auto) 0.5 % Neutrophils # (Auto) 2.9 TH/MM3 Lymphocytes # (Auto) 2.7 TH/MM3 Monocytes # (Auto) 0.5 TH/MM3 Eosinophils # (Auto) 0.1 TH/MM3 Basophils # (Auto) 0.0 TH/MM3 CBC Comment AUTO DIFF Differential Total Cells 100 Counted Neutrophils % (Manual) 52 % Band Neutrophils % 1 % Lymphocytes % 41 % Monocytes % 4 % Eosinophils % 2 % Neutrophils # (Manual) 3.3 TH/MM3 Differential Comment FINAL DIFF MANUAL Platelet Estimate NORMAL Platelet Morphology Comment NORMAL Ovalocytes 2+ Sodium Level 140 MEQ/L Potassium Level 3.9 MEQ/L Chloride Level 108 MEQ/L Carbon Dioxide Level 23.5 MEQ/L Anion Gap 9 MEQ/L Blood Urea Nitrogen 6 MG/DL Creatinine 0.39 MG/DL Estimat Glomerular Filtration 229 ML/MIN Rate Random Glucose 106 MG/DL Calcium Level 8.6 MG/DL Magnesium Level 1.9 MG/DL Total Bilirubin 0.7 MG/DL Aspartate Amino Transf 32 U/L (AST/SGOT) Alanine Aminotransferase 39 U/L (ALT/SGPT) Alkaline Phosphatase 176 U/L Total Creatine Kinase 53 U/L Troponin I LESS THAN 0.02 NG/ML Total Protein 7.1 GM/DL Albumin 3.0 GM/DL Lipase 244 U/L Thyroid Stimulating Hormone LESS THAN 3rd Gen 0.005 uIU/ML MDM Medical Decision Making Medical Screen Exam Complete: Yes Emergency Medical Condition: Yes Medical Record Reviewed: Yes Interpretation(s) Last Impressions CT Angiography 07/24/16 0240 Signed Impressions: Service Date/Time: Sunday, July 24, 2016 03:58 - CONCLUSION: 1. No evidence of pulmonary embolism. 2. No acute pulmonary infiltrates. 3. Diffuse enlargement of thyroid gland suggestive of a goiter. 4. Multiple nonspecific mildly prominent bilateral axillary lymph nodes. Francisco Javier Alcantar MD Differential Diagnosis Thyroid storm, versus hypothyroid disorder, versus electrolyte abnormality, versus pulmonary embolism Narrative Course During the course of the patients emergency department visit, the patients history, examination, and differential diagnosis were reviewed with the patient. The patient had IV access obtained and blood work sent for analysis. The patient was placed on a monitor technician with oximetry and blood pressure monitoring. An EKG was done on arrival. The patient's EKG shows a sinus tachycardia rate of 106, no acute ST segment elevation or depression. CTA to rule out PE was ordered. The patient was initially provided normal saline 1 L IV fluid bolus, morphine 4 mg IV for pain, Zofran 4 mg IV for nausea. The patients laboratory studies were reviewed and remarkable for a white count of 6.2, hemoglobin 9.9, platelets 270 with 8.3 monocytes, CMP is remarkable for a chloride of 108, BUN 6, creatinine 0.39, alkaline phosphatase 176, CPK 53, troponin I less than 0.02, lipase 244, TSH is less than 0.005, bedside test is negative. Radiology studies were reviewed and remarkable for a CTA to rule out PE that shows no evidence of pulmonary embolism, no acute pulmonary infiltrates, diffuse enlargement of the thyroid gland suggestive of a goiter, multiple nonspecific mildly prominent bilateral axillary lymph nodes. The patient will be given another dose of atenolol. The patient will have her atenolol increased to 50 mg twice a day. The patient will be started on methimazole. We did have a lengthy discussion regarding options for treatment of Graves' disease and hyperthyroid disorder with a goiter. We did discuss the fact that typically radiation therapy, versus surgical therapy is the standard of care when her goiter is as large as hers. However, as the patient has been waiting for further follow-up regarding these options the patient was agreeable with the plan to start on by mouth treatment for her hypothyroid disorder. The patient is resting comfortably and feels better, is alert and in no distress. The patients results and examination findings were discussed with the patient. The repeat examination is unremarkable and benign. The history, exam, diagnostic testing, and current condition do not suggest any significant pathology to warrant further testing, continued ED treatment, admission, or surgical evaluation at this point. The vital signs have been stable. The patient does not have uncontrollable pain, intractable vomiting, or other significant symptoms. The patient's condition is stable and appropriate for discharge. The patient will pursue further outpatient evaluation with a primary care physician or other designated or consulting physician as indicated in the discharge instructions. The patient expressed understanding and was agreeable with this plan. Diagnosis Primary Impression: Hyperthyroidism Referrals: Primary Care Physician 1 day Patient Instructions: General Instructions, Hyperthyroidism (ED) Additional Instructions: The patient is instructed to increase her atenolol dose from 50 mg once a day to 50 mg twice a day. The patient was started on methimazole. She will be calling her primary care physician for follow-up appointment tomorrow. Med/Other Pt SpecificInfo: Prescription(s) given Scripts Atenolol 50 Mg Tab50 Mg PO BID #60 TAB Ref 0 Prov:Ashleigh Keyes MD 07/24/16 Methimazole 10 Mg Tab10 Mg PO DAILY #30 TAB Ref 0 Prov:Ashleigh Keyes MD 07/24/16 Disposition: 01 DISCHARGE HOME Condition: Stable Ashleigh Keyes MD Jul 24, 2016 03:56
[2016-07-24 04:01] LABS: CREATINE KINASE 53 U/L (26-192)
[2016-07-24 04:03] LABS: BANDS 1 % (0-6); EOSINOPHILS 2 % (0-4); NEUTROPHIL # MANUAL DIFF 3.3 TH/MM3 (1.8-7.7); POLYS (SEG NEUTROPHILS) 52 % (16-70); WBC DIFF SAMPLE 100
[2016-07-24 04:04] LABS: OVALOCYTES 2+ (NORMAL); PLATELET ESTIMATE SMEAR NORMAL (NORMAL); PLATELET MORPHOLOGY NORMAL (NORMAL); SCAN/DIFF FINAL DIFF MANUAL
[2016-07-24] MEDS ORDERED: IOHEXOL 350 MG/ML 10 ML VIAL (for RAD DIAG) IV ONE (04:12)
--- NOTE | 2016-07-24 04:21 | RADRPT ---
EXAM DATE/TIME: 07/24/2016 03:58 [facility] COMPARISON: No previous studies available for comparison. INDICATIONS : Medial chest pain. IV CONTRAST: 74 cc Omnipaque 350 (iohexol) IV RADIATION DOSE: 12.33 CTDIvol (mGy) MEDICAL HISTORY : Cardiovascular disease. Hypertension. SURGICAL HISTORY : section. ENCOUNTER: Initial ACUITY: 1 day PAIN SCALE: 10/10 LOCATION: medial chest TECHNIQUE: Volumetric scanning of the chest was performed using a pulmonary embolism protocol MIP images were re constructed. Using automated exposure control and adjustment of the mA and/or kV according to patien t size, radiation dose was kept as low as reasonably achievable to obtain optimal diagnostic quality images. FINDINGS: PULMONARY ARTERIES: No filling defects are seen in the pulmonary arteries through the segmental level. LUNGS: There is no consolidation or pneumothorax . No concerning pulmonary nodule is visualized. PLEURAE: There is no pleural thickening or pleural effusion. MEDIASTINUM: There is good visualization of the great vessels of the middle mediastinum. No evidence of mediastin al or hilar adenopathy/mass. Heart size is mildly enlarged. MUSCULOSKELETAL: Within normal limits for patient age. MISCELLANEOUS: The visualized upper abdominal organs demonstrate no acute abnormality. The thyroid is diffusely enla rged suggestive of a goiter. There are several nonspecific mildly prominent bilateral axillary lymph nodes. CONCLUSION: 1. No evidence of pulmonary embolism. 2. No acute pulmonary infiltrates. 3. Diffuse enlargement of thyroid gland suggestive of a goiter. 4. Multiple nonspecific mildly prominent bilateral axillary lymph nodes. Francisco Javier Alcantar MD on July 24, 2016 at 4:16 Board Certified Radiologist. This report was verified electronically.
[2016-07-24] MEDS ORDERED: ATEN50TA PO (04:36)
[2016-07-24] MEDS ORDERED: METHI10 PO (04:36)
[2016-07-24] MEDS ORDERED: ATENOLOL 50 MG TAB PO ONE (04:45)
--- NOTE | 2016-07-24 08:35 | EKG ---
Date Performed: 07/24/2016 Time Performed: 02:20:27 PTAGE: 31 years EKG: SINUS TACHYCARDIA ABNORMAL ECG NO PREVIOUS TRACING DOCTOR: Rell Helton Interpretating Date/Time 07/24/2016 08:35:11
== END 2016-07-24 05:22 | disposition home or self-care (01) ==
LOC: NEPC 01:56
DX: E05.90 Thyrotoxicosis, unspecified without thyrotoxic crisis or storm (principal); I10 Essential (primary) hypertension; R05 Cough
CPT/HCPCS: 71275; 80053; 82550; 83690; 83735; 84443; 84484; 84703; 85007; 85027; 93005; 96361; 96374; 96375; 99285; J2270; J2405; J7030; Q9967